=== PATIENT | male | born 1970 | race Caucasian/White ===

== ENCOUNTER 2017-01-23 12:06 | Day surgery (SDC) | payer BC ==
[~2017-01-23] VITALS: Ht 180.3 cm; Wt 93.0 kg
--- NOTE | 2017-01-23 14:38 | Provider's Discharge Care Plan ---
Problem, Goal, Plan Problem List 1. S/P colonoscopy Goals: Screening Instructions: Follow up as needed, Take meds as directed, high fiber diet
--- NOTE | 2017-01-23 14:38 | Provider's Discharge Care Plan ---
Problem, Goal, Plan Problem List 1. S/P colonoscopy Goals: Screening Instructions: Follow up as needed, Take meds as directed, high fiber diet
--- NOTE | 2017-01-23 14:42 | Operative Report ---
Operative Report Date of Surgery: 01/23/17 Preoperate Diagnosis: screening colonoscopy and family history of colon cancer Postoperative Diagnosis: normal colonoscopy Surgeon: Armando Haas MD Electrician Assistant Surgeon: none Procedure Performed: Screening colonoscopy Anesthesia: Total intravenous anesthesia Indications: A 46-year-old male whose brother recently was diagnosed with colon cancer. Patient is asymptomatic. FINDINGS: Normal appearing cecum, ascending colon, transverse colon, descending colon. Normal appearing sigmoid colon and rectal vault. Surgical Technique: Patient was brought to the operating room. Patient was placed in the left lateral decubitus position. Patient was administered TIVA by anesthesia. Once anesthesia had taken effect digital rectal examination was performed. No masses or stenosis was appreciated. This was then followed by the passage of a fiberoptic video flexible Olympus colonoscope. The scope was then passed without difficulty and the cecum was visualized. The cecum was identified by anatomical landmarks and anterior abdominal wall ballottement. On withdrawing the scope the aforementioned findings were noted. The scope was then retroflexed and a good view of the rectal wall obtained. The scope was then completely withdrawn. Patient tolerated procedure well. Patient was transferred to the recovery room in stable condition. There were no intraoperative or anesthetic complications.
== END 2017-01-23 16:14 | disposition home or self-care (01) ==
LOC: OR SRH 12:06 → ACUTE3 SRH 12:09 → OR SRH 14:00
PROVIDERS: Specialist
PROC: 0DJD8ZZ Inspection of Lower Intestinal Tract, Via Natural or Artificial Opening Endoscopic (ICD-10-PCS; principal; 2017-01-23 14:00)
DX: Z80.0 Family history of malignant neoplasm of digestive organs (principal); Z12.11 Encounter for screening for malignant neoplasm of colon